=== PATIENT | female | born 1940 | race Hispanic/Latino ===

== ENCOUNTER 2024-08-05 09:50 | Emergency (ER) | payer MEDICARE ==
[~2024-08-05] VITALS: Ht 157.5 cm; Wt 72.6 kg
[2024-08-05] MEDS: OXYMETAZOLINE HCL 0.05% NAS 1 SPRAY BTL ONE (11:00)
[2024-08-05 11:50] VITALS: PULSE 62; RESP 18; TEMP 98.1; O2SAT 98
== END 2024-08-05 11:52 | disposition home or self-care (01) ==
LOC: ER 10:06
DX: R04.0 Epistaxis (principal); I10 Essential (primary) hypertension; E78.5 Hyperlipidemia, unspecified
CPT/HCPCS: 99282